=== PATIENT | female | born 1975 | race African-American/Black ===

== ENCOUNTER → 2016-10-21 | Outpatient (CLI) | payer OTHER ==
--- NOTE | ~2016-10-21 | US128 ---
[id number] [facility] [address] [facility]. [place], [place] [address] [id number] O MR#: [id number] Acc #: [id number] NAME: CELESTE PEDERSON : 1975 SEX: F STUDY DATE/TIME: 10/21/2016 14:59 UNIT: [facility] ROOM: STUDY DESCRIPTION: Thyroid Attending Physician: Amelia Jose A.P.R.N. Referring Physician: Amelia Jose A.P.R.N. Ordering Physician: Amelia Jose A.P.R.N. Primary Care Physician: Amelia Jose A.P.R.N. MEDICAL IMAGING REPORT This report is preliminary unless electronic signature is present EXAM Thyroid ultrasound 10/21/2016 HISTORY Hypothyroidism, heart palpitations 1 week ago. FINDINGS The right thyroid lobe measured 4.4 cm x 1.8 cm x 1.9 cm while the left lobe measured 4.6 cm x 1.5 cm x 1.8 cm. The isthmus measured 4.1 mm in the AP direction. Both thyroid lobes are heterogeneous in echotexture but demonstrate no discrete cystic or solid nodules. There are no masses extrinsic to the thyroid. Normal blood flow is seen throughout both thyroid lobes. IMPRESSION Diffusely heterogeneous thyroid demonstrating no discrete cystic or solid nodules. Dictated by... Suhail Carson M.D. THIS IS AN ELECTRONICALLY VERIFIED REPORT Suhail Carson M.D. at 10/23/2016 9:33 AM JASIEL/izaiah TD: 10/22/2016 09:55 JOB #: [id number] MEDICAL IMAGING REPORT Page 1 of 1 COPY
== END | disposition home or self-care (01) ==
LOC: CGUS 14:36
DX: E03.9 Hypothyroidism, unspecified (principal)
CPT/HCPCS: 76536

== ENCOUNTER → 2016-12-01 | Outpatient (CLI) | payer OTHER ==
--- NOTE | ~2016-12-01 | TH ---
Unit #: [id number] #: [id number] Patient: CELESTE PEDERSON [id number] [address] [address] [id number] O MR#: [id number] NAME: CELESTE PEDERSON : 1975 SEX: F STUDY DATE/TIME: 12/01/2016 UNIT: [facility] ROOM: STUDY DESCRIPTION: Exercise stress test - Nuclear Attending Physician: Constance Paz M.D. Referring Physician: Constance Paz M.D. Primary Care Physician: Amelia Jose A.P.R.N. CARDIOLOGY REPORT PROCEDURE PERFORMED Exercise Cardiolite stress test - Nuclear portion. PROCEDURE Using technetium 99m-labeled Cardiolite, rest and stress SPECT images were obtained. Multiple SPECT images were obtained in various views, including horizontal and vertical long axis and short axis views of the left ventricle. Images were obtained by gated SPECT method. The patient was administered 11.6 mCi of Cardiolite at rest. The patient was administered 33.8 mCi of Cardiolite at peak exercise. Total exercise time is 6 minutes and 15 seconds. On the stress images, there is normal perfusion noted. The rest images show normal perfusion. Comparing the rest and stress images, there is no stress-induced ischemia noted. The left ventricular ejection fraction is calculated to be 64%. There is no focal wall motion abnormality seen. CONCLUSION 1. No stress-induced ischemia noted. 2. The left ventricular ejection fraction is calculated to be 64%. 3. There is no focal wall motion abnormality seen. 4. Normal nuclear portion of the stress test. 5. It must be noted that the patient's blood pressure was elevated at 180/67 mmHg; patient had hypertensive blood pressure response with a peak blood pressure of 210/80 mmHg. Clinical correlation is requested. Dictated by... Jem Duque TD: 12/01/2016 16:05 JOB #: [id number] Unit #: [id number] #: [id number] Patient: CELESTE PEDERSON CARDIOLOGY REPORT Page 1 of 1 X Constance Paz MD <ELECTRONICALLY SIGNED> 01/30/17 1429 CARDIOLOGY REPORT
--- NOTE | ~2016-12-01 | ST ---
Unit #: [id number] #: [id number] Patient: CELESTE PEDERSON [id number] [address] [address] [id number] O MR#: [id number] NAME: CELESTE PEDERSON : 1975 SEX: F STUDY DATE/TIME: UNIT: [facility] ROOM: STUDY DESCRIPTION: Stress Test Attending Physician: Constance Paz M.D. Referring Physician: Constance Paz M.D. Primary Care Physician: Amelia Jose A.P.R.N. CARDIOLOGY REPORT EXAM Exercise Cardiolite Stress Test DESCRIPTION Baseline EKG - normal sinus rhythm with ventricular rate 71 beats/minute, left atrial abnormality, Q wave in V1, T wave inversion in lead III and slightly prolonged QT. The patient walked on the treadmill for 6 minutes 15 seconds utilizing Nakul protocol achieving a workload of 7.30 METs. 90% of maximum target heart rate achieved at 162 beats/minute with a hypertensive blood pressure response of 210/90 mmHg. EKG during the test was equivocal to baseline. No acute ischemic changes. It was noted the T wave inversion in lead III was absent during the stress portion but returned in recovery phase. There is also some nonspecific ST-T wave abnormalities in the anterior leads. IMPRESSION 1. Functional class 3 with workload of 7.30 METs. 2. Patient walked for 6 minutes 15 seconds achieving 90% of maximum target heart rate at 162 beats/minute with a maximum blood pressure response of 210/90 mmHg. It is noted that the patient's blood pressure at the end of recovery phase was 152/104 mmHg. 3. EKG during the test was equivocal to baseline. No acute ischemic changes. There were nonspecific ST-T wave abnormalities in inferior anterior lateral leads. 4. Cardiolite was injected at maximum target heart rate. Radionuclide test pending. Please correlate with nuclear images. Dictated by... Bernadette Karimi.P.RCisco for Jem Duque/scout TD: 12/01/2016 11:08 JOB #: [id number] Unit #: [id number] #: [id number] Patient: CELESTE PEDERSON CARDIOLOGY REPORT Page 1 of 1 X Nathalie Odom APRN CARDIOLOGY REPORT
[2016-12-01 10:23] LABS: CHOLESTEROL 184 mg/dL (0-200); HDL CHOLESTEROL 32 mg/dL (35-95); LDL CHOLESTEROL 92 mg/dL (-130); LDL/HDL RATIO 3 RATIO (0-4); TRIGLYCERIDES 300 mg/dL (10-160)
== END | disposition home or self-care (01) ==
LOC: CLAB 07:43 → CNUC 07:43
PROVIDERS: Internal Medicine Cardiovascular Disease
DX: R07.89 Other chest pain (principal)
CPT/HCPCS: 36415; 78452; 80061; 93017; A9500